=== PATIENT | male | born 1955 | race Caucasian/White ===

== ENCOUNTER 2016-08-06 15:43 | Inpatient (IN) | payer OTHER ==
[~2016-08-06] VITALS: Ht 185.4 cm; Wt 90.7 kg
[2016-08-06 15:50] VITALS: BP 162/72; PULSE 56; RESP 14; O2SAT 98
--- NOTE | 2016-08-06 16:00 | ED.REPORT ---
HPI-Psychiatric Illness Date of Service Aug 06, 2016 ED Provider: Julius Dickerson DO A 60 year old male with a history of hypertension and thyroid disease is brought to the ED by police due to suicidal ideation. The pt turned himself in to police today while in the possession of multiple firearms. He had planned to "walk [place] and just [place] himself," but flagged down a security police instead and turned over his firearms. The pt states that his suicidal ideation was caused by family and relationship issues. His life is "spiralling out of control" and it would be "better if he were ." In the ED, the pt states that he "should not have flagged the senior gis analyst" and doubts that this was the right decision. The pt denies alcohol or drug use. He has been prescribed medications for thyroid and hypertension but has been noncompliant for some time. He denies a history of depression and is on no antidepressant medications. Per pt's , pt is under federal investigation. Nursing Notes Stated Complaint: SUICIDAL IDEATION Chief Complaint: Psychiatric Complaint Nursing Notes Reviewed: Yes General Time Seen by MD: 15:59 Chief Complaint Suicidal ideation Hx Obtained From: Patient, Police Arrived By: Police Symptom Duration: Since onset Recent Healthcare: No recent doctor visit, No recent hospitalization Similar Sx Previous: No Risk-Psychiatric Illness Suicide Risk Stratification Suicide Risk Factors - Adult: : Access to firearmsNo: Alcohol use, Previous attempt, Prior psych admission, Substance abuse RF Statements: Risk factors reviewed Past Medical History Past Medical History hypertension Past Surgical History none reported Smoking History Unknown if Ever Smoker Social History Alcohol Use: "Social" Other Social History: Ambulatory Status Independent Review of Systems Constitutional: Denies: Fever Respiratory: Denies: Non-productive cough, Shortness of breath Cardiovascular: Denies: Chest pain GI: Denies: Abdominal pain Skin: Denies Rash Psychiatric: Reports: Depression, Suicidal ideation Complete sys rev & neg: except as marked. Physical Exam Initial Vital Signs Vital Signs (First) Date Time Temp Pulse Resp B/P Pulse Ox O2 Delivery O2 Flow Rate FiO2 08/06/16 15:50 36.7 56 14 162/72 98 Room Air Initial VS: Reviewed General/Constitutional: Awake, Alert Behavior: Positive: Tearful poor eye contact Neurologic: Oriented X3, Speech NL, No motor deficits, No sensory deficits Psychiatric: Affect NL Abnormal Mood/Affect: Positive: Depressed Suicidal Head / Eyes: Atraumatic, Normocephalic, PERRL, EOMI ENT: Atraumatic, Airway patent, Mucous membranes moist Respiratory / Chest: Atraumatic, Breath sounds NL, Breath sounds = bilat, No respiratory distress Cardiovascular: Heart rate NL, Regular rhythm, Heart sounds NL Abdomen: Atraumatic, Soft, Non-tender Skin: Atraumatic, Color NL, No rash, Warm, Dry Neck: Atraumatic, Supple, Full range of motion Back: Atraumatic, Full range of motion Upper Extremity / MS: Atraumatic, Full range of motion Lower Extremity / Pelvis / MS: Atraumatic, Full range of motion Interpretation & Diagnostics Lab Results Interpretation Result Diagram: 08/06/16 1700 08/06/16 1700 Test 08/06/16 17:00 White Blood Count 6.3th/mm3 (3.8-10.1) Red Blood Count 4.98mil/mm3 (4.40-5.80) Hemoglobin 14.9g/dL (13.8-17.2) Hematocrit 42.6% (41.0-50.0) Mean Corpuscular Volume 85.5fL (81-100) Mean Corpuscular Hemoglobin 29.9pg (27.0-35.0) Mean Corpuscular Hemoglobin Concent 35.0% (32.0-37.0) Red Cell Distribution Width 12.5% (12.3-15.4) Platelet Count 195bil/L (150-400) Neutrophils (%) (Auto) 71.2% (40-74) Lymphocytes (%) (Auto) 19.0% (14-46) Monocytes (%) (Auto) 8.3% (4-12) Eosinophils (%) (Auto) 1.0% (0-5) Basophils (%) (Auto) 0.3% (0-3) Sodium Level 142mEq/L (134-144) Potassium Level 4.5mEq/L (3.5-5.2) Chloride Level 103mEq/L (97-108) Carbon Dioxide Level 26mmol/L (18-29) Blood Urea Nitrogen 13mg/dL (8-27) Creatinine 0.92mg/dL (0.76-1.27) Estimat Glomerular Filtration Rate 89mL/min (>59) Glucose Level 106mg/dL (60-99) Calcium Level 9.4mg/dL (8.5-10.1) Total Bilirubin 1.9mg/dL (0.0-1.2) Aspartate Amino Transf (AST/SGOT) 28U/L (0-50) Alanine Aminotransferase (ALT/SGPT) 13U/L (0-44) Alkaline Phosphatase 67U/L (25-160) Total Protein 7.4g/dL (6.4-8.4) Albumin 4.3g/dL (3.4-5.0) Thyroid Stimulating Hormone (TSH) 5.250uIU/mL (0.450-4.500) Re-Eval/Medical Decision Source of Hx: Family Re-Evaluation/Progress : Time of Eval: 15:59 Re-Evaluation/Progress Note: Pt informed of the need for social work consultation and admission during the initial interview. The pt understands and agrees with the plan. All questions are addressed at this time. Consultation #1: Call Returned at: 18:30 Note: Spoke with Conference Center Coordinator regarding pt's case. encyclopedia research worker recommends admission. Consultation #2: Call Returned at: 18:45 Unit Secretary: Accepts admit Note: Psychiatry agrees to admit the pt. Pt will be admitted at 23:00. Counseled Regarding: Diagnosis, Lab results, Need for admission Discharge & Departure Impression: Primary Impression: Suicidal ideation Additional Impressions: Hypothyroidism Hypothyroidism type: unspecified Qualified Code: E03.9 - Hypothyroidism, unspecified Hypertension Hypertension type: essential hypertension Hypertension goal: less than 140/ 90 Qualified Code: I10 - Essential (primary) hypertension Disposition: ADMITTED TO HOSPITAL Discharge Condition All VS Reviewed: Yes Condition: Stable Referrals: [facility] [place] Attestation Portions of this note were transcribed by Karin Arambula I, Dr. Dickerson personally performed the history, physical exam and medical decision-making; I reviewed and confirmed the accuracy of the information in the transcribed note. Signed by: Ivan Palm, 08/06/16 and 23:03. copies to: [facility] Julius Dickerson DO Aug 06, 2016 16:00 KARIN ARAMBULA Aug 06, 2016 16:38
[2016-08-06 17:17] LABS: BASOPHILS % (AUTO) 0.3 % (0-3); MONOCYTES % (AUTO) 8.3 % (4-12); Mean Corpuscular Hemoglobin 29.9 pg (27.0-35.0); Mean Corpuscular Volume 85.5 fL (81-100); NEUTROPHILS % (AUTO) 71.2 % (40-74); Platelet Count 195 bil/L (150-400)
[2016-08-06 19:32] VITALS: BP 142/72; PULSE 54; RESP 16; O2SAT 97
[2016-08-06 22:48] VITALS: BP 164/77; PULSE 52; RESP 16; O2SAT 95
[2016-08-06] MEDS ORDERED: Benzocaine-Menthol Lozenge 2/Pkg MT PRN (23:00)
[2016-08-06] MEDS ORDERED: Magnesium Hydroxide 10 mL Oral Concentration PO PRN ×2 (23:00→23:45)
[2016-08-06] MEDS ORDERED: Alum-Mag Hydrox-Simeth 30 mL Suspension PO PRN ×2 (23:00→23:45)
[2016-08-06] MEDS ORDERED: Benzocaine-Menthol Lozenge 2/Pkg PO PRN (23:45)
[2016-08-07] MEDS: LORazepam 1 mg Tablet PO PRN ×3 (00:50→22:19)
--- NOTE | 2016-08-07 02:20 | NUR ---
Nursing: Admission 00:03 60 year old male admitted via wheelchair from [facility]. Patient left home earlier today with all his guns and planned to "blow his brains out" Patient then flagged down customs and immigration officer stating he wanted to turn himself in. Patient does report he is suspect in a federal law enforcement investigation and is anxious all the time. He has no psychiatric history prior to this. Patient is cooperative with admission process,polite, frequently responds "yes maam". 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 Patient reports he only sleeps a few hours. Patient reports he usually eats one meal a day at work, mostly because my only cooks what "her kids like to eat" Patient reports he stays in room and watches tv or listens to radio. Patient states 's children refer to him as "the man who their mother/grandmother" and rarely talk to him. Patient was asked if anything triggers him. Patient becomes tearful and states any talk of cancer. Patient then state his first of breast cancer about 4 years ago, prior to him marrying his current . Patient reports feeling exhausted but unable to sleep. Patient received Trazadone 50 mg po and Ativan 1 mg po with helpful effect. Patient observed to be asleep on subsequent safety checks. Addendum: 08/07/16 at 0601 by GORDON BENNETT RN Nursing: Addendum Patient appears to be sleeping the remainder of shift when observed on safety checks.
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
--- NOTE | 2016-08-07 11:42 | NUR ---
Nursing Day Shift- S- "I just want to be . I think it would be better for everyone if I was gone. I want someone to shoot me or something. If I where to leave today I would call my step son in [place] to send me a ticket, and return to [place]. There's nothing for me here." O- Pt. was awake for breakfast. He appeared flat and sad. He reported good sleep, rated his anxiety as 7/10, denied active suicidal intent, but stated the above. He eat 100% out in the DR then returned to his room. Ativan 1 mg PO was offered and taken at 0930. Pt reported a 22 year history with long-term in 1995, the loss of a of 25 years 4 years ago, financial problems and legal problems. A- Depression with multiple situational stressors and a lack of resources or connections. P- Pt. was offered encouragement and support. Cont. BHTP.
[2016-08-07 12:20] VITALS: BP 147/81; PULSE 61; RESP 16
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
--- NOTE | 2016-08-07 17:29 | NUR ---
Observations 0700 to 1900 Pt maintained behavioral control throughout the shift. Pt is flat, depressed, isolative. Pt stayed in room in bed for entire shift except for meals and community meeting. Pt set goal to get through day. Pt does not seek interaction and communicates very briefly. Pt ate 75-100% of meals and was observed every 15 minutes as ordered.
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
--- NOTE | 2016-08-07 20:59 | NUR ---
NURSING NOTE [id number] Orientation= x4 Mood= "depressed" Affect= despondent, tearful Behavior= mostly isolating to room this evening except to come out for dinner and to make a phone call to his son. Not seen interacting w/peers. Thought processes= pt. endorsing severe depression, has passive SI w/no intent at this time; "I don't want to be alive but I'm not looking at windows trying to jump out of them or anything... I know I have to get through this". Pt. agreed to tell staff if his suicidality changes at all.
--- NOTE | 2016-08-08 06:01 | NUR ---
Nursing Noc. Patient out to common area shortly for evening snack then quickly isolated back to room as people started appearing in DR for snack. Q15 minute safety snacks performed throughout the night, Continuing to monitor safety, mood, behavior, emotional state and sleep times. CP
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
--- NOTE | 2016-08-08 12:49 | NUR ---
Nursing Day Shift- S- "I'm hanging in there." O- Pt. appeared asleep at the start of the day shift. He woke for breakfast and eat 100%, then returned to his room. Pt. was able to contract for safety. He endorsed passive SI without a plan. Pt. was out again for lunch, met with Cm, then watched tv in the public area. A- Situational depression and multiple stressors. Pt. seems to be gaining insight into events that led to hospitalization. P- Cont. BHTP.
--- NOTE | 2016-08-08 14:33 | NUR ---
Regulatory Process Manager./ c.m. S.:"I'm feeling better today. I had a good talk with my step-son. He is part of Atiya and a good memory of her She is still looking after me..." O.: met with pt. to discuss his progress. He slept well last night. He denied SI/HI. "When I think about it I know now that it's not worse of my life. I will do what I have to do and than I will leave it behind..." He denied AH/VH or paranoid/delusional thoughts. He said that his mood was "better today". He had a good phone conversation yesterday with his step-son who lives in [place]. His step-son told him that he loved him and invited him to come and live with him after he sorts things out here in [place]. "He made me feel better about myself." Pt. also talked to his who told him that she won't let him to come back home. She will pack his stuff and will put it outside. She didn't want to discuss anything else with him. "Her family is more important to her than me and that's how it is all the time. She doesn't want to hear what I'm saying." He said that he would meet with his furniture sales consultant tomorrow to discuss his case. He said that police was trying to force him to say something that he didn't do. He said that being here gave him a chance to think and process a lot of things. "That's why I'm sitting in my room. Being alone gives me a chance to think." He felt even more grateful to his late and her son who are still supportive of him. 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 He doesn't have a place to live here in [place] but he is willing to stay in his car for a short time if necessary. He was out of his room more after lunch reading and watching TV. A.: pt. is cooperative, quiet, isolative, has a flat affect. He has better insight, tearful at times. P.: monitor behavior, monitor for safety, continue working on stress management; follow care plan.
--- NOTE | 2016-08-08 17:30 | NUR ---
[facility] Day Shift Pt maintained behavioral control throughout the shift. Pt affect appears mostly flat. Pt spends most of the shift resting in his room or sitting quietly/watching TV in the dining room. Pt is appropriate with staff and peers when engaged, but is not social. Pt has not attended any group activities throughout the shift. Pt attended all meals and ate approx 76=739% of all meals.
[2016-08-08] MEDS: LORazepam 1 mg Tablet PO PRN (18:16)
--- NOTE | 2016-08-08 20:02 | NUR ---
NURSING NOTE [id number] Orientation= x4 Mood= "I.. I'm trying to keep it together" *begins to cry* Affect= profoundly sad, anxious, tearful Behavior= visible a bit more this evening than evening prior. He sat out in the dining area watching TV amongst his peers (however didn't interact w/them). He spoke to his step-son again on the phone and reported the conversation went well and that his sep-son has offered his support to him "no matter what happens to me... even if I go to residential and do my time he said he would let me stay with him afterward" Otherwise mostly isolating in his room. Thought processes= pt. endorses depression and passive suicidal ideation (no plan or intent). He did report he is feeling more encouraged this evening than yesterday because his step-son in [place] has offered to take him in "even if I go to residential and do my time". He is expressing remorse over "what I was doing on the internet" and repeated multiple times that "I need to get help, long-term help for this-- I don't want to be on the internet doing what I was doing ever again". He reports motivation to "do better, get better, I know I need help". PRNs Ativan 1 mg @ 18:16
--- NOTE | 2016-08-09 03:40 | NUR ---
Observations from [id number] Pt was isolative for most of the evening, watching tv but mot engaging with peers or staying in his room and keeping to himself. Pt came out to the dining room at 2230 and looked concerned so this keno writer approached him and asked what was wrong. He said that he was nervous about having to meet with a layer and a new doctor tomorrow but I assured him the doctors and tax examiner are very nice and helpful. He asked for a bible and then socialized with a peer until midnight. He spent 45 minutes reading the bible in his room and appeared asleep at 0045. Pt has appeared to sleep soundly and has been monitored every 15 minutes as directed.
--- NOTE | 2016-08-09 05:31 | NUR ---
Nursing NOC Pt engaging in long conversation in dining room with other female pt, asleep from 2029 to 2229 and then again from 44 on for remainder of night. Q 15 min checks throughout night.
[2016-08-09 09:59] VITALS: BP 149/95; PULSE 66; RESP 16
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
--- NOTE | 2016-08-09 14:41 | PCM.DIMED ---
Discharge Instructions Date of Service Aug 09, 2016 Dates of Hospitalization Aug 06, 2016 at 21:13 Discharge Diagnosis Discharge Diagnosis [place] I: Adjustment disorder with disturbance of mixed anxiety and depressed mood [place] II: None. [place] III: Hypertension. [place] IV: Severe. [place] V: Current Global Assessment of Functioning equals 55. Test Results Laboratory Tests 72 Hours Test 08/06/16 17:00 White Blood Count 6.3th/mm3 (3.8-10.1) Red Blood Count 4.98mil/mm3 (4.40-5.80) Hemoglobin 14.9g/dL (13.8-17.2) Hematocrit 42.6% (41.0-50.0) Mean Corpuscular Volume 85.5fL (81-100) Mean Corpuscular Hemoglobin 29.9pg (27.0-35.0) Mean Corpuscular Hemoglobin Concent 35.0% (32.0-37.0) Red Cell Distribution Width 12.5% (12.3-15.4) Platelet Count 195bil/L (150-400) Neutrophils (%) (Auto) 71.2% (40-74) Lymphocytes (%) (Auto) 19.0% (14-46) Monocytes (%) (Auto) 8.3% (4-12) Eosinophils (%) (Auto) 1.0% (0-5) Basophils (%) (Auto) 0.3% (0-3) Sodium Level 142mEq/L (134-144) Potassium Level 4.5mEq/L (3.5-5.2) Chloride Level 103mEq/L (97-108) Carbon Dioxide Level 26mmol/L (18-29) Blood Urea Nitrogen 13mg/dL (8-27) Creatinine 0.92mg/dL (0.76-1.27) Estimat Glomerular Filtration Rate 89mL/min (>59) Glucose Level 106mg/dL (60-99) Calcium Level 9.4mg/dL (8.5-10.1) Total Bilirubin 1.9mg/dL (0.0-1.2) Aspartate Amino Transf (AST/SGOT) 28U/L (0-50) Alanine Aminotransferase (ALT/SGPT) 13U/L (0-44) Alkaline Phosphatase 67U/L (25-160) Total Protein 7.4g/dL (6.4-8.4) Albumin 4.3g/dL (3.4-5.0) Thyroid Stimulating Hormone (TSH) 5.250uIU/mL (0.450-4.500) Diet Heart Healthy Activity No restrictions Patient Instructions Should you have any thoughts of harming yourself or others, please call the crisis line, your provider, 911, or go to the nearest Emergency Department. Do not change or discontinue your medications without discussing with your provider. You are not receiving any routinely prescribed medications. You should follow-up with your primary care provider regarding your hypertension. Follow-up plan Primary Care [facility] Dr. Fernandez on Tue08/11/16 at 10:15am [address] [address] Jose Key MD Aug 09, 2016 14:31
--- NOTE | 2016-08-09 17:49 | NUR ---
DISCHARGE NOTE Pt. signed all required paperwork and completed his safety plan. He denied SI/HI, stated: "I feel safe now" and reported he planned to take a taxi to the police department in his town and have police escort him to his home so that he can gather some belongings and his truck and then planned to go stay at a motel. He discharged from the unit at 15:15 via taxi.
--- NOTE | 2016-08-09 18:19 | NUR ---
Spray Drier/Counselor: S: "I want to go and live with my step-son in [place], [place]." O: Patient slept 8 hours last night as per staff. He denies S/I and H/I. He denies auditory and visual hallucinations. Depression is 0/10 and anxiety is 1/10. Patient spoke with [employer] to requested that a electronic assembly assayer patient to his home to get one of his cars and clothing. Patient took a taxi to the [employer] station. Out-patient appointment: Dr. Fernandez, [facility], 08.11.16 at 10:15am. A: Patient is cooperative, hopeful, seeking help. P: Follow care plan, coordinate out-patient provider and transportation.
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
== END 2016-08-09 15:15 | disposition home or self-care (01) | DRG 882 ==
LOC: SED 15:43 → MHC 21:13
PROVIDERS: ADMIT Psychiatry & Neurology Psychiatry; ATTEND Psychiatry & Neurology Psychiatry
DX: F43.24 Adjustment disorder with disturbance of conduct (principal); R45.851 Suicidal ideations; E03.9 Hypothyroidism, unspecified